=== PATIENT | female | born 1975 | race Two or more races ===

== ENCOUNTER 2022-11-22 05:32 | Day surgery (SDC) | payer OTHER ==
[2022-11-16 13:54] LABS: BASOPHILS % (AUTO) 0.5 % (0-1); EOSINOPHILS # (AUTO) 0.1 X10'3 (0-0.9); EOSINOPHILS % (AUTO) 1.8 % (0-6); HEMATOCRIT 36.5 % (35.0-45.0); HEMOGLOBIN 12.2 g/dl (12.0-16.0); LYMPHOCYTES % (AUTO) 44.5 % (21-51); MEAN CORPUSCULAR HEMOGLOBIN 31.1 PG (27.0-31.0); MEAN CORPUSCULAR HGB CONC 33.3 g/dL (33.0-36.5); MEAN CORPUSCULAR VOLUME 93.5 FL (78-98); MEAN PLATELET VOLUME 8.3 FL (7.4-10.4); MONOCYTES # (AUTO) 0.5 X10'3 (0-0.9); MONOCYTES % (AUTO) 6.9 % (2-12); NEUTROPHILS # (AUTO) 3.1 X10'3 (1.8-7.7); NEUTROPHILS % (AUTO) 46.3 % (42-75); PLATELET COUNT 219 X10'3 (140-440); RED BLOOD COUNT 3.91 X10'6 (4.20-5.60); RED CELL DISTRIBUTION WIDTH 14.4 % (11.5-14.5); WHITE BLOOD COUNT 6.8 X10'3 (4.5-11.0)
[2022-11-16 14:08] LABS: ALANINE AMINOTRANSFERASE 38 U/L (12-78); ALKALINE PHOSPHATASE 83 IU/L (46-116); ANION GAP 7 (8-16); ASPARTATE AMINO TRANSFERASE 30 U/L (10-37); BILIRUBIN,TOTAL 0.3 MG/DL (0.1-1.0); BLOOD UREA NITROGEN 29 MG/DL (7-18); BUN/CREATININE RATIO 38.7 (10.0-20.0); CALCIUM 9.5 MG/DL (8.5-10.1); CHLORIDE 101 MMOL/L (99-107); CREATININE 0.75 MG/DL (0.40-0.90); GLUCOSE 91 MG/DL (70-104); SODIUM 136 MMOL/L (135-145); TOTAL CARBON DIOXIDE 28.1 MMOL/L (24-32); eGFR 82 ML/MIN
[2022-11-22] VITALS (10 sets, daily range): BP systolic 83–109; BP diastolic 47–62; PULSE 55–67; RESP 14–58; TEMP 96.9; O2SAT 94–98
[~2022-11-22] VITALS: Ht 162.6 cm; Wt 78.0 kg
[~2022-11-22 05:32] MED LIST: BARIATRIC VITAMINS; ESTR0.5T28 PO; famotidine 20mg tablet PO ONE; ringers solution, lacted 1,000 ML IV SCH
[2022-11-22] MEDS ORDERED: BUPIVAcaine/PF 2.5 mg/ml (0.25%) 30ml vial ONE (06:36)
[2022-11-22] MEDS ORDERED: LIDOcaine 1% 30ml preserv. free vial ONE (06:36)
[2022-11-22] MEDS ORDERED: triamcinolone acetonide 40mg/ml inj ONE (06:36)
[2022-11-22] MEDS ORDERED: cloNIDine hcl/PF 100mcg/ml inj ONE (07:12)
[2022-11-22] MEDS ORDERED: fentaNYL/PF 50MCG/1 ML 2ML syringe ONE (07:14)
[2022-11-22] MEDS ORDERED: midazolam 1 mg/ML 2ml injection ONE (07:15)
[2022-11-22] MEDS ORDERED: sevoflurane 250ml liquid IH ONE (07:18)
[2022-11-22] MEDS ORDERED: meperidine/PF 25mg/ml syringe IV PRN ×3 (07:20)
[2022-11-22] MEDS ORDERED: proCHLORperazine 10 MG/2 ml inj IV PRN (07:20)
[2022-11-22] MEDS ORDERED: morphine 2 MG/ML inj. syringe IV PRN (07:20)
[2022-11-22] MEDS ORDERED: labetalol 20mg/4ml (5mg/ml) syringe IV PRN (07:20)
[2022-11-22] MEDS ORDERED: acetaminophen 1,000mg/100ml IV 100 ML IV PRN (07:20)
[2022-11-22] MEDS ORDERED: hydrALAZINE 20mg/ml inj. IV PRN (07:20)
[2022-11-22] MEDS ORDERED: morphine 4 MG/ML inj SYRINge IV PRN (07:20)
[2022-11-22] MEDS ORDERED: ondansetron/PF 4mg/2ml inj IV PRN (07:20)
[2022-11-22] MEDS ORDERED: ringers solution, lacted 1,000 ML IV SCH (07:20)
[2022-11-22] MEDS ORDERED: ROPIVAcaine 0.5% (5mg/ml) 30ml vial ONE (07:43)
[2022-11-22] MEDS ORDERED: LIDOcaine 2% (20mg/ml) 5ml vial ONE (07:43)
[2022-11-22] MEDS ORDERED: propofol inj 20 ML IV ONE (07:43)
[2022-11-22] MEDS ORDERED: dexamethasone sod phosphate 4mg/ml inj. ONE (07:43)
[2022-11-22] MEDS ORDERED: LIDOcaine 1%/PF 5ML 10 MG/ML VIAL ONE (07:43)
[2022-11-22] MEDS ORDERED: BUPIVAcaine/PF 2.5 mg/ml (0.25%) 30ml vial IJ ONE (07:47)
[2022-11-22] MEDS ORDERED: triamcinolone acetonide 40mg/ml inj IM ONE (07:47)
[2022-11-22] MEDS ORDERED: HYDROcodone/acetaminophen 10/325mg tab PO PRN (07:50)
--- NOTE | 2022-11-22 07:55 | NUR ---
Received from OR via , accompanied by Anesthesiologist DR PAREDES and report given by Anesthesiolgist. VSS. PATIENT HAS ORAL AIRWAY IN, IV IN RIGHT WRIST 20G NO ISSUES. SLING ON LEFT SHOULDER Addendum: 11/22/22 at 0846 by Sherrie Hurtado RN Amended: Links added.
--- NOTE | 2022-11-22 09:05 | NUR ---
PATIENT MEETS DISCHARGE CRITERIA. VSS, IV DC'D WITH NO ISSUES, AND PATIENT STATES NO PAIN. CHECKED PATIENTS BS AT 0826 AND IT WAS 68. I GAVE HER SOME JUICE AND YOLANDA CRACKERS. SHE STATED SHE WAS VERY HUNGRY. RECHECKED BS AT 0850 AND PATIENT'S BS WAS 99. WAS AT BEDSIDE PER SURGEON'S REQUEST. EDUCATED HER ON RANGE OF MOTION EXERCISES AND HAD HIM GO GET THEIR VEHICLE. WHEELED PATIENT TO HER 'S CAR.
== END 2022-11-22 09:05 | disposition home or self-care (01) ==
LOC: PAS 05:32
PROVIDERS: ATTEND Orthopaedic Surgery
DX: M75.02 Adhesive capsulitis of left shoulder (principal); E11.9 Type 2 diabetes mellitus without complications; M19.012 Primary osteoarthritis, left shoulder; G89.18 Other acute postprocedural pain; Z98.890 Other specified postprocedural states; Z98.51 Tubal ligation status; Z90.710 Acquired absence of both cervix and uterus; Z72.89 Other problems related to lifestyle; Z98.84 Bariatric surgery status; Z79.899 Other long term (current) drug therapy
CPT/HCPCS: 20610; 23700; 36415; 64415; 80053; 82948; 85025; J0735; J1100; J2250; J2704; J2795; J3010; J3301; J3490; J7120; Z7506; Z7512; A4565; A4618